=== PATIENT | female | born 1995 | race Caucasian/White ===

== ENCOUNTER 2020-04-20 14:08 | Outpatient (REF) | payer OTHER, SELFPAY | END 2020-04-20 14:09 | disposition home or self-care (01) | LOC: HO.LNP 14:08 | PROVIDERS: Visit Provider Hospitalist | DX: Z20.828 Contact with and (suspected) exposure to other viral communicable diseases (principal); B34.9 Viral infection, unspecified | CPT/HCPCS: U0003 ==

== ENCOUNTER 2020-12-18 07:42 | Outpatient (REF) | payer OTHER, SELFPAY ==
--- NOTE | ~2020-12-18 | XR_ITS ---
EXAMINATION: XR KNEE, LEFT CLINICAL INFORMATION: Pain COMPARISON: None TECHNIQUE: Standing AP view of both knees and lateral and sunrise of the left knee. FINDINGS: Left knee: Bone alignment is normal. No fracture or dislocation is seen. Joint spaces are normal. There is no joint effusion. Standing AP view of the right knee is unremarkable. XR/XR knee LT 3V IMPRESSION: Unremarkable exam.
== END 2020-12-18 07:43 | disposition home or self-care (01) ==
LOC: HO.HOSX 07:42
PROVIDERS: Visit Provider Physician Assistant
DX: S83.92XA Sprain of unspecified site of left knee, initial encounter (principal); M25.561 Pain in right knee; F17.210 Nicotine dependence, cigarettes, uncomplicated; X58.XXXA Exposure to other specified factors, initial encounter; Y93.67 Activity, basketball; Y92.9 Unspecified place or not applicable; Y99.9 Unspecified external cause status
CPT/HCPCS: 73562; 99202

== ENCOUNTER → 2021-01-15 12:45 | Outpatient (BNVA) | payer OTHER, SELFPAY | PROVIDERS: Visit Provider Physician Assistant ==

== ENCOUNTER 2021-11-23 12:46 | Emergency (ER) | payer OTHER, SELFPAY ==
--- NOTE | ~2021-11-23 | XR_ITS ---
EXAMINATION: XR KNEE, LEFT CLINICAL INFORMATION: Pain in knee COMPARISON: Left knee radiograph 12/19/2019 TECHNIQUE: Four views of the left knee. FINDINGS: Small knee effusion. The left knee demonstrates normal alignment without fracture, dislocation or acute osseous abnormalities. XR/XR knee LT 4V IMPRESSION: Small left knee joint effusion. No acute osseous abnormalities demonstrated.
[2021-11-23 12:49] VITALS: BP 124/84; PULSE 83; RESP 18; TEMP 36.6; O2SAT 99; BMI 19.3
--- NOTE | 2021-11-23 14:00 | ED_ITS ---
HPI - Extremity Injury (Lower) General Chief Complaint: Extremity Injury, Lower Stated Complaint: left knee INJ Time Seen by Provider: 11/23/21 14:00 History of Present Illness HPI Narrative: Patient complains of left knee pain after twisting it in basketball 2 days ago, no other injury and she is able to walk with a with a limp Related Data Home Medications Medication Instructions Recorded Confirmed betamethasone valerate 0.1 % topical BID 04/20/20 04/20/20 topical ointment cetirizine 10 mg tablet 10 mg PO DAILY 04/20/20 04/20/20 diphenhydramine HCl 25 mg capsule 25 mg PO BEDTIME PRN 04/20/20 04/20/20 Previous Rx's Medication Instructions Recorded ondansetron HCl 8 mg tablet 8 mg PO Q8H PRN nausea and 04/20/20 vomiting #20 tabs norgestimate-ethinyl estradiol 1 tab PO DAILY #84 tabs 06/29/20 0.18 mg/0.215mg/0.25mg-35 mcg(28)tablet Allergies Allergy/AdvReac Type Severity Reaction Status Date / Time No Known Allergies Allergy Verified 12/18/20 09:35 Review of Systems Review of Systems: Positive for left knee pain after injury Negatives are no head injury no headache no neck pain no back pain no numbness weakness or tingling no other extremity pains no lacerations Yes all other systems are reviewed and are negative PMFSH Past Medical History Source: nursing notes reviewed Medical History Genital herpes Social History Social History (Updated 12/02/21 @ 11:27 by Dee Paige Markus) Alcohol intake: current Alcohol intake frequency: a few times a month Patient Tobacco Use Status: Current everyday Tobacco user Cigarettes Per Day: 4 Current occupational status: employed Current occupation: [employer], rt handed Physical Exam Vital Signs: Vital Signs: Last Vital Signs Temp 98 F 11/23/21 12:49 Pulse 83 11/23/21 12:49 Resp 18 11/23/21 12:49 BP 124/84 11/23/21 12:49 Pulse Ox 99 11/23/21 12:49 O2 Del Method 11/23/21 12:49 BMI result Body Mass Index 19.3 General appearance comfortable no acute distress Head is normocephalic atraumatic Neck is supple Back full range of motion Respiratory no distress Extremities the right knee had some medial and lateral tenderness, there was very mild swelling, there was some limited on flexion but full extension patient ambulating but with a limp, motor and sensation were intact distal and skin was intact Skin no rashes Neuro no focal deficits Course Course Course Narrative: X-ray showed a small effusion, no bony injury of the left knee Exam is consistent with possibly a partial tear of the ligament or meniscus injury, and patient will follow with orthopedics for further evaluation Discharge Plan Discharge Clinical Impression: Left knee sprain Patient Disposition: Home, Self-Care Additional Instructions: X-ray showed a small amount of fluid in the knee which can happen with the knee sprain, or a cartilage injury or partial tear of the ligament so follow with orthopedics for further evaluation Return any time any concerns Use Motrin if needed, apply ice Prescriptions: No Action norgestimate-ethinyl estradiol 0.18/0.215/0.25 mg-35 mcg (28) tablet 1 tab PO DAILY Qty: 84 8RF betamethasone valerate 0.1 % ointment topical BID diphenhydramine HCl 25 mg capsule 25 mg PO BEDTIME PRN cetirizine 10 mg tablet 10 mg PO DAILY ondansetron HCl 8 mg tablet 8 mg PO Q8H PRN (Reason: nausea and vomiting) Qty: 20 0RF Referrals: Paras Pineda MD [Physician] - (Left knee sprain from sports) Stand Alone Forms: Work/School Release Interventions: ED Discharge Assessment Last Done: 11/23/21 14:16 Discharge Date/Time: 11/23/21 14:21
== END 2021-11-23 14:21 | disposition home or self-care (01) ==
PROVIDERS: Emergency Provider Student in an Organized Health Care Education/Training Program
DX: S83.92XA Sprain of unspecified site of left knee, initial encounter (principal); X50.1XXA Overexertion from prolonged static or awkward postures, initial encounter; Y93.67 Activity, basketball; Y92.310 Basketball court as the place of occurrence of the external cause; Y99.9 Unspecified external cause status; Z79.899 Other long term (current) drug therapy
CPT/HCPCS: 73564; 99283

== ENCOUNTER 2021-12-02 11:13 | Outpatient (REF) | payer OTHER, SELFPAY ==
--- NOTE | ~2021-12-02 | XR_ITS ---
EXAMINATION: XR KNEE, LEFT CLINICAL INFORMATION: Pain COMPARISON: Radiographs left knee 11/23/2021, 12/18/2020 TECHNIQUE: Single axial view of the patellar is obtained. FINDINGS: Normal bony mineralization. Patella is midline and without lateralization or tilting. No joint narrowing or erosive change or chondrocalcinosis. No osteophytic spurring. XR/XR knee LT 1V IMPRESSION: Normal axial patella. No lateralization, tilting, or arthropathy.
== END 2021-12-02 11:14 | disposition home or self-care (01) ==
LOC: HO.HOSX 11:13
PROVIDERS: Visit Provider Physician Assistant
DX: M25.562 Pain in left knee (principal)
CPT/HCPCS: 73560

== ENCOUNTER 2022-01-09 14:00 | Outpatient (RCR) | payer OTHER, SELFPAY ==
--- NOTE | 2021-12-10 08:54 | MHC.PT.EP ---
[facility] [place] Office [place] Office [place] Office [address] [place] [address] [phone] F: [phone] F: [phone] F: [phone] F: [phone] Physical Therapy Plan of Care Date of Evaluation: Date of Surgery: n/a Diagnosis: L knee sprain Assessment: Patient is a 26 year old female presenting to PT with complaints of pain in her L knee. Pt reports onset of pain began about 1 month ago due to a contact injury when playing basketball. She presents today with impairments in pain, knee strength, hip strength, ttp, swelling. Pt's current occupation is at [employer], with baseline physical activities including. 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 Clinical presentation today is most consistent with signs and sx associated with L knee sprain and pt will benefit from skilled PT to address the following problems and impairments noted upon evaluation: pain, knee strength, hip strength, ttp, swelling. These problems limit the patient with the following functional activities: running, ambulation, work, basketball, transfers. The prescribed treatment plan of care is medically necessary. Co-morbidities of none were identified and taken into considerations of plan of care. Pt was educated on HEP, role of PT, prognosis, POC. Frequency and Duration: The patient will be seen 2 x week x 4 weeks Short Term Goals: Pt will demonstrate full ROM on L without pain in 2 weeks. Pt will demonstrate 5/5 knee MMT strength on L with min to no pain in 2 weeks. Pt will demonstrate hip strength at least 4+/5 in 2 weeks for improved lumbopelvic stability. Grain Manager Goals: Pt will demonstrate improved LEFI score by 9 points in 4 weeks for improved functional mobility. Pt will demonstrate ability to work a full shift with min to no pain in 4 weeks for improved role at work. Pt will demonstrate ability to run with min to no pain in 4 weeks for return to PLOF with leisure basketball. Pt will demonstrate ability to transfer in and out of the car with no pain in 4 weeks for return to PLOF. Treatment Plan: Modalities to reduce pain, spasms and effusion. Manual therapy to restore motion and function. Therapeutic exercise to improve strength and flexibility. Neuromuscular re-education for posture and balance. Therapeutic activities to return to functional activities of daily living. Electronically signed by: Eleni Ojeda, PT, DPT, ATC Please sign and return to therapist. Thank you for your referral.
--- NOTE | 2022-02-11 08:32 | MHC.PT.DC ---
[facility] [place] Office [place] Office [place] Office [address] [place] [address] [phone] F: [phone] F: [phone] F: [phone] F: [phone] Physical Therapy Discharge Report Diagnosis: L knee sprain Date of Surgery: n/a Date of Evaluation: 12/10/21 Date of Discharge: 02/11/22 Treatments to Date: 5 Cancellations to Date: 0 No Shows to Date: 0 Discharge Status: Recommend MD Follow-up Discharge Summary: PT was put on hold pending MRI and due to limited visits allowed by insurance company. Pt has not reached out in >30 days to be scheduled and therefore pt to be d/c per policy. Electronically signed by: Eleni Ojeda, PT, DPT, ATC Please sign and return to therapist. Thank you for your referral.
== END 2022-02-11 08:34 | disposition home or self-care (01) ==
LOC: HO.PTCHIC 14:00
PROVIDERS: Visit Provider Physician Assistant
DX: S83.92XA Sprain of unspecified site of left knee, initial encounter (principal)
CPT/HCPCS: 97110; 97140; 97161

== ENCOUNTER 2022-02-05 19:20 | Outpatient (REF) | payer OTHER, SELFPAY ==
--- NOTE | ~2022-02-05 | MR_ITS ---
EXAMINATION: MR KNEE WITHOUT CONTRAST, LEFT CLINICAL INFORMATION: Injury, medial swelling. COMPARISON: X-ray 12/02/2021 TECHNIQUE: MRI of the knee without contrast was performed using routine sequences on a high-field scanner. FINDINGS: MENISCI: Medial Meniscus: Increased signal raising concern for a vertical longitudinally propagating tear in the peripheral aspect of the posterior horn/meniscocapsular interface. Lateral Meniscus: There is fraying/ill-defined tear of the posterior root, with increased signal, irregularity. LIGAMENTS: Cruciate: Increased signal, laxity and irregularity of the ACL having the appearance of partial-thickness tearing. PCL is intact. Collateral: Intact EXTENSOR MECHANISM: Intact ARTICULAR CARTILAGE/BONE: Patellofemoral Compartment: No focal cartilage loss Medial Compartment: No focal cartilage loss Lateral Compartment: Mild increased signal suggestive of edema likely bone bruise in the lateral femoral condyle and the lateral tibial plateau. JOINT FLUID AND BURSAE: Small effusion. MR/MR knee LT wo con IMPRESSION: 1. Findings suspicious for a vertical tear in the peripheral aspect of the posterior horn/meniscocapsular interface of the medial meniscus. 2. Ill-defined fraying/tear of the posterior root of the lateral meniscus. 3. Anterior cruciate ligament partial-thickness tearing. 4. Bone contusion in the lateral femoral condyle and lateral tibial plateau.. 5. Small effusion.
== END 2022-02-05 19:21 | disposition home or self-care (01) ==
LOC: HO.MRI 19:20
PROVIDERS: Visit Provider Physician Assistant
DX: S83.92XA Sprain of unspecified site of left knee, initial encounter (principal)
CPT/HCPCS: 73721

== ENCOUNTER 2022-03-05 09:13 | Day surgery (SDC) | payer OTHER, SELFPAY ==
[2022-02-28 10:56] VITALS: BMI 19.3
--- NOTE | 2022-03-04 08:37 | HO.ANESPROP2 ---
Documented by User: Bozena Rodriguez NP 03/04/22 08:37 HPI - Anesthesia Eval Consult details Narrative: 26yo F for Left ACL Allograft partial menisectomy PMFSH Active Problems Active Problems: All Active Problems (Updated 02/13/22 @ 10:56 by Yumiko Lopes) Viral syndrome (Acute) Knee pain (Acute) Knee sprain (Acute) Left knee sprain (Acute) Left ACL tear (Acute) Tear of medial meniscus of left knee (Acute) Genital herpes (Acute) Past Medical History Medical History (Updated 02/13/22 @ 10:56 by Yumiko Lopes) Genital herpes Surgical History Surgical History (Updated 03/05/22 @ 10:16 by Genia Herndon RN) Menno teeth removed Social History Social History Alcohol intake: current Alcohol intake frequency: a few times a month Patient Tobacco Use Status: Current everyday Tobacco user Tobacco use type: Cigarette Cigarettes Per Day: 4 Current occupational status: employed Current occupation: [employer] Allergies Allergy/AdvReac Type Severity Reaction Status Date / Time No Known Allergies Allergy Verified 02/13/22 08:51 Home Medications Medication Instructions Recorded Confirmed Last Taken Type betamethasone valerate 0.1 % topical BID 04/20/20 04/20/20 Unknown History topical ointment cetirizine 10 mg tablet 10 mg PO DAILY 04/20/20 04/20/20 Unknown History diphenhydramine HCl 25 mg capsule 25 mg PO BEDTIME PRN 04/20/20 04/20/20 Unknown History Exam Exam Date and Time: March 04, 2022 0837 Height,Weight and Vital Signs: Height 5 ft 6 in Weight 54.431 kg Assessment and Plan Assessment Anesthesia Assessment: Chart Reviewed Documented by User: Bacilio Solis MD 03/05/22 18:02 HPI - Anesthesia Eval Consult details Narrative: 26yo F for Left ACL Allograft partial menisectomy URI a week ago , no fever , SOB , lungs clear , some residual congestion. COVID negative Discussed with the surgeon . [facility] Past Medical History Medical History (Updated 02/13/22 @ 10:56 by Yumiko Lopes) Genital herpes Family History Family history of problems with anesthesia: No Surgical History Surgical History (Updated 03/05/22 @ 10:16 by Genia Herndon RN) Menno teeth removed History of Problems with Anesthesia: No Social History Social History Alcohol intake: current Alcohol intake frequency: a few times a month Patient Tobacco Use Status: Current everyday Tobacco user Tobacco use type: Cigarette Cigarettes Per Day: 4 Current occupational status: employed Current occupation: [employer], rt [employer] Allergies Allergy/AdvReac Type Severity Reaction Status Date / Time No Known Allergies Allergy Verified 02/13/22 08:51 Home Medications Medication Instructions Recorded Confirmed Last Taken Type betamethasone valerate 0.1 % topical BID 04/20/20 04/20/20 Unknown History topical ointment cetirizine 10 mg tablet 10 mg PO DAILY 04/20/20 04/20/20 Unknown History diphenhydramine HCl 25 mg capsule 25 mg PO BEDTIME PRN 04/20/20 04/20/20 Unknown History Exam Airway Mallampati Class: II TM Dist: >3cm Neck ROM: Full Loose/Missing/Broken Teeth: Yes (Fillings ) Heart: S1,S2 Lungs: b/l breath sounds Assessment and Plan Assessment Anesthesia Assessment: Anesthesia Plan Discussed Final Anesthetic Review Family History of Problems with Anesthesia: No History of Problems with Anesthesia: No NPO: Yes ASA Class: II Final Preanesthetic Review: Meds/Allgs Chart Reviewed, Consent Obtained/Reviewed and Anes Risks/Benef Reviewed Patient Risk: Intermediate Procedure Risk: Intermediate Anesthetic Plan Anesthetic Plan: GA and Regional Block Disposition: Standard PACU
[2022-03-05] VITALS (13 sets, daily range): BP systolic 105–141; BP diastolic 60–76; PULSE 64–116; RESP 16; TEMP 36.3–37.2; O2SAT 97–100; BMI 21.7
[2022-03-05 09:37] LABS: UPreg QC Valid YES; Urine Pregnancy NEGATIVE (NEGATIVE)
--- NOTE | 2022-03-05 09:49 | PC.NURSE ---
patient has a cough and runny nose for six dys. asymptomatic. no fever. covid swab performed.
[2022-03-05 10:17] LABS: COVID-19 Test Negative (Negative); IDNOW Serial# 9DB6401D
--- NOTE | 2022-03-05 10:27 | PC.NURSE ---
covid negative. patient states productive clear sputum with small brown spots. states he cough is gettig better since 5-6 days ago. no fever.
[2022-03-05] MEDS: Lactated Ringers 1,000 ML 100 ML IVCONT (10:28)
--- NOTE | 2022-03-05 11:27 | MHC.SHP ---
Pre-Procedural Eval Section A Date of Service: 03/05/22 The patient is an INPATIENT: No Changes since office visit: Yes Patient answered all questions; No Cold of Flu in the past 2 weeks, No New Medical Problems and No Changes in Medication The History & Physical has been completed within 30 days and I have reviewed it.: Yes Section B Chief Complaint: acl tear Allergies: Allergies Allergy/AdvReac Type Severity Reaction Status Date / Time No Known Allergies Allergy Verified 02/13/22 08:51 Plan I have reviewed the history and physical and performed a pertinent physical examination on my patient. No changes have occurred unless specified.
--- NOTE | 2022-03-05 14:03 | P.BOP_ITS ---
Brief Operative Note Date of Service: 03/05/22 Pre-op diagnosis: Left ACL rupture Post-op diagnosis: same Procedure: Left ACL reconsturction with allograft and hamstring autograft Implants: 10x25 [employer]hew biocomposit tibial interference screw with lateral ACL button and RTI Allograft Surgeon: Paras Pineda MD Anesthesia: GETA, regional and local Was an Assistant Portfolio Manager used for this Procedure?: No Assistant Portfolio Manager: Shakila Vasquez Estimated blood loss (mL): 25 Tourniquet time (min): 75 IV fluids (mL): 1,000 Pathology: none sent Condition: stable Disposition: PACU
[2022-03-05] MEDS: oxyCODONE HCl Immed Release 5 MG TABLET PO (14:45)
[2022-03-05] MEDS: fentaNYL citrate/PF 100 MCG/2 ML VIAL 25 MCG IVPUSH ×2 (14:46→14:51)
--- NOTE | 2022-03-05 15:29 | W.PM.OPN ---
Operative Note Operative Note Date of Service: 03/05/22 Narrative: Date of Service: 03/05/22 Pre-op diagnosis: Left ACL rupture Post-op diagnosis: same Procedure: Left ACL reconsturction with allograft and hamstring autograft Implants: 10x25 [employer]hew biocomposit tibial interference screw with lateral ACL button and RTI Allograft Surgeon: Paras Pineda MD Anesthesia: GETA, regional and local Was an Deli Department Manager used for this Procedure?: No Deli Department Manager: Shakila Vasquez Estimated blood loss (mL): 25 Tourniquet time (min): 75 IV fluids (mL): 1,000 Pathology: none sent Condition: stable Disposition: PACU Procedure in detail: Patient was brought to the operating room placed supine on the arthroscopic table and prepped and draped in standard sterile fashion. A time-out was called to identify proper site proper procedure proper surgeon and IV antibiotics per weight were administered. Under anesthesia she had a + pivot shift and 2+ arabelal's. I began by exsanguinating the limb and insufflating tourniquet to 300 mm Hg. I made a 2 cm incision over the pes anserine tendons. I spread through subq fat and identified the sartorius fasia. A ramon incision was made and the underlying smitendinosis and gracilis were identified. I then used a tendon stripped to remove each tendon in standard fashion. Neither were large caliber so the decision was made to augment with allograft. THis was opened and the graft thawed and prepared on the back table. I then made a standard anterolateral stab incision. The knee was insufflated with water and 30 degree arthroscope was placed. There was grade 1 fibrillations of the patella but overall suprapatellar pouch and the gutters were clean. I descended into the medial compartment where I made my far medial portal under direct visualization. There was a normal medial meniscus and lateral meniscus. I then examined the notch where there was a + empty wall sign and an intact PCL. I debrided the stump and acl footprint and performed a limited notchplasty. I then, through a far AM portal and a 7mm behind the back guide, drilled a k-wire through the LFC with the knee in hyper-flexion. I measured the tunnel as a 35 and then after sizing the allograft on the back table drilled a 35 mm tunnel with an 10 mm reamer for 27 mm and the final 8 mm was drilled with a 4.5 reamer. I then pulled a suture through the femoral tunnel and turned my attention to the tibia. I did examine the femoral tunnel and was satisfied with the posterior wall and its location low and medial at the anatomic footprint. I placed my tibial drill guide in 55 deg and, through the prior anteromedial incision, just lateral to the tibial tubercle, placed a k-wire into the notch exiting just medial to the anterior horn insertion of the lateral meniscus. I then over-reamed with an 10 reamer. I cleaned the tunnels up with a shaver. On the back table the allograft/autograft was doubled and whip stitched to fit through a 10 aperture. The femoral button was attached to the looped end. I placed the graft on 15lbs of tension for 10 minutes. I then passed the allograft through the tibial tunnel and femoral tunnel and flipped the button over the lateral femoral cortex. I cycled the knee about 10-15 cycles with tension on the graft and then placed a tibial interference screw over a nitinol wire with the knee in hyper-extension while holding the graft taught. Once I was satisfied that the interference screw was buried I examined the ACL and the medial meniscus repair. The repair was stable and the ACL was not impinging and there was a negative pivot shift. I then removed all instrumentation and closed the incisions with absorbable suture Patient was then placed in sterile dressings and a hinged knee brace. She was then extubated brought recovery room stable condition. There were no known complications.
== END 2022-03-05 16:55 | disposition home or self-care (01) ==
PROVIDERS: Anesthesiology; Nurse Practitioner; Visit Provider Orthopaedic Surgery
PROC: (CPT 27428; principal; 2022-03-05 11:30)
DX: S83.512A Sprain of anterior cruciate ligament of left knee, initial encounter (principal); S83.242A Other tear of medial meniscus, current injury, left knee, initial encounter; X58.XXXA Exposure to other specified factors, initial encounter; Y93.9 Activity, unspecified; Y92.9 Unspecified place or not applicable; Y99.8 Other external cause status; A60.00 Herpesviral infection of urogenital system, unspecified; Z79.899 Other long term (current) drug therapy; F17.210 Nicotine dependence, cigarettes, uncomplicated; Z20.822 Contact with and (suspected) exposure to COVID-19
CPT/HCPCS: 29888; 81025; 87635; A4649; C1713; J0690; J1100; J1170; J1200; J1885; J2250; J2405; J2550; J2795; J3010

== ENCOUNTER 2022-03-13 12:03 | Outpatient (REF) | payer OTHER, SELFPAY ==
--- NOTE | ~2022-03-13 | XR_ITS ---
EXAMINATION: XR KNEE, LEFT CLINICAL INFORMATION: Left knee pain. COMPARISON: None. TECHNIQUE: Four views of the left knee. FINDINGS: There are postsurgical changes following ACL repair. The tricompartment joint space is maintained normal. There is postop changes in the suprapatellar bursa combination of air and hematoma likely from recent surgery. No acute fracture or loose body seen. There is no dislocation.. XR/XR knee LT 2V IMPRESSION: Soft tissue hematoma and gas in several bursa likely from recent ACL repair. No acute fracture or loose body seen.
== END 2022-03-13 12:04 | disposition home or self-care (01) ==
LOC: HO.HOSX 12:03
PROVIDERS: Visit Provider Physician Assistant
DX: M25.562 Pain in left knee (principal)
CPT/HCPCS: 73560

== ENCOUNTER 2022-06-25 13:00 | Outpatient (RCR) | payer OTHER, SELFPAY ==
--- NOTE | 2022-03-07 16:06 | MHC.PT.EP ---
[facility] [place] Office [place] Office [place] Office [address] [place] [address] [phone] F: [phone] F: [phone] F: [phone] F: [phone] Physical Therapy Plan of Care Date of Evaluation: Date of Surgery: 03/05/2022 Diagnosis: L ACL repair Assessment: Patient is a 26 year old female presenting to PT s/p L ACL and meniscus repair on 03/05/2022. She presents today with impairments in pain, ROM, hip strength, knee strength, gait mechanics, balance. Pt's current occupation is at [employer], with baseline physical activities including ambulation, stair negotiation, work, ADLs, running, jumping. Pt expresses shelter goal of getting back to [facility] [employer], and is motivated to work towards this in PT. Clinical presentation today is most consistent with signs and sx associated with s/p L ACL and meniscus repair on 03/05/2022 and pt will benefit from skilled PT to address the following problems and impairments noted upon evaluation: pain, ROM, hip strength, knee strength, gait mechanics, balance. These problems limit the patient with the following functional activities: ambulation, stair negotiation, work, ADLs, running, jumping. The prescribed treatment plan of care is medically necessary. Co-morbidities of none were identified and taken into considerations of plan of care. Pt was educated on HEP, role of PT, prognosis, POC. Frequency and Duration: The patient will be seen 2 x week x 12 weeks Short Term Goals: Pt will demonstrate good VMO recruitment without extension lag in 4 weeks. Pt will demonstrate L knee flexion AROM to 90 deg in 4 weeks. Pt will demonstrate L knee extension AROM to 0 for symmetry with R knee in 4 weeks. Pt will demonstrate increased L patella mobility to 3/6 in 4 weeks. Pt will demonstrate gait mechanics WNL in brace for decreased risk in 6 weeks. Pt will demonstrate B hip strength at least 4/5 for improved lumbopelvic stability in 6 weeks. Pt will demonstrate L knee passive flexion to 120 deg for improved ability to maintain sitting in 6 weeks. Pt will demonstrate L knee MMT strength at least 4/5 in 6 weeks. Penitentiary Goals: Pt will demonstrate increased L knee flexion to 135 deg for ability to perform full bicycle revolution in 8 weeks. Pt will demonstrate ability to ambulate with normal gait mechanics without brace in 8 weeks. Pt will demonstrate L SLS EO x 15 sec and L SLS EO on foam x 15 sec for improved L knee proprioception in 10 weeks. Pt will demonstrate B hip strength at least 4+/5 in 10 weeks for improved lumbopelvic stability. Pt will demonstrate knee strength at least 5/5 in 10 weeks. Pt will demonstrate L SL squat within 4 cm of RLE for decreased risk of reinjury in 12 weeks. Pt will demonstrate L SL CR within 90% of RLE with good mechanics in 12 weeks. Pt will demonstrate DL squat jump with good mechanics in 12 weeks. Treatment Plan: Modalities to reduce pain, spasms and effusion. Manual therapy to restore motion and function. Therapeutic exercise to improve strength and flexibility. Neuromuscular re-education for posture and balance. Therapeutic activities to return to functional activities of daily living. Electronically signed by: Eleni Ojeda, PT, DPT, ATC Please sign and return to therapist. Thank you for your referral.
--- NOTE | 2022-08-15 08:23 | MHC.PT.DC ---
[facility] [place] Office [place] Office [place] Office [address] Skyler Hatfield [address] [phone] F: [phone] F: [phone] F: [phone] F: [phone] Physical Therapy Discharge Report Diagnosis: L ACL repair Date of Surgery: 03/05/2022 Date of Evaluation: 03/07/22 Date of Discharge: 08/15/22 Treatments to Date: 16 Cancellations to Date: 0 No Shows to Date: 1 Discharge Status: Visit Non-compliance Discharge Summary: Pt no showed her last scheduled PT appointment and did not call to be rescheduled. She has not attended PT in >30 days. Pt to be d/c per policy. Electronically signed by: Eleni Ojeda, PT, DPT, ATC Please sign and return to therapist. Thank you for your referral.
== END 2022-08-15 08:24 | disposition home or self-care (01) ==
LOC: HO.PTCHIC 13:00
PROVIDERS: Visit Provider Physician Assistant
DX: S83.512A Sprain of anterior cruciate ligament of left knee, initial encounter (principal)
CPT/HCPCS: 97110; 97112; 97140; 97161; 97530

== ENCOUNTER 2022-06-30 12:22 | Outpatient (REF) | payer OTHER, SELFPAY ==
--- NOTE | ~2022-06-30 | XR_ITS ---
EXAMINATION: XR KNEE, BILATERAL XR KNEE, LEFT CLINICAL INFORMATION: Pain COMPARISON: 03/13/2022 TECHNIQUE: AP standing view of both knees. Lateral and sunrise views of the left knee. FINDINGS: Left knee: Status post ACL reconstruction. This is unchanged from prior. No fracture or subluxation. Compartmental joint spaces are maintained. No joint effusion. Mild anterior soft tissue swelling. Right knee: No fracture or subluxation on this single view with medial and lateral compartmental joint spaces maintained. XR/XR knee LT 2V IMPRESSION: Status post left ACL reconstruction. No acute osseous abnormality. Mild anterior soft tissue swelling.
--- NOTE | ~2022-06-30 | XR_ITS ---
EXAMINATION: XR KNEE, BILATERAL XR KNEE, LEFT CLINICAL INFORMATION: Pain COMPARISON: 03/13/2022 TECHNIQUE: AP standing view of both knees. Lateral and sunrise views of the left knee. FINDINGS: Left knee: Status post ACL reconstruction. This is unchanged from prior. No fracture or subluxation. Compartmental joint spaces are maintained. No joint effusion. Mild anterior soft tissue swelling. Right knee: No fracture or subluxation on this single view with medial and lateral compartmental joint spaces maintained. XR/XR knee standing BI IMPRESSION: Status post left ACL reconstruction. No acute osseous abnormality. Mild anterior soft tissue swelling.
== END 2022-06-30 12:23 | disposition home or self-care (01) ==
LOC: HO.HOSX 12:22
PROVIDERS: Visit Provider Orthopaedic Surgery
DX: S83.512A Sprain of anterior cruciate ligament of left knee, initial encounter (principal); S83.242A Other tear of medial meniscus, current injury, left knee, initial encounter
CPT/HCPCS: 73560; 73565

== ENCOUNTER → 2022-09-29 13:07 | Outpatient (BNVA) | payer OTHER, SELFPAY | PROVIDERS: Visit Provider Orthopaedic Surgery | DX: Z13.89 Encounter for screening for other disorder (principal) ==

== ENCOUNTER 2022-12-26 09:39 | Outpatient (REF) | payer OTHER, SELFPAY ==
--- NOTE | ~2022-12-26 | XR_ITS ---
X-RAY LEFT KNEE X-RAY AP STANDING VIEWS OF BOTH KNEES CLINICAL HISTORY: Pain. COMPARISON: Radiograph left knee 06/30/2022. TECHNIQUE: 2 views of the left knee. 1 AP standing view of both knees. FINDINGS: Stable postoperative changes in the left knee following ACL reconstruction. No acute fractures or malalignment. Mild joint space narrowing of the medial compartments in both knees. No erosions or chondrocalcinosis. No joint effusion. Redemonstration of some degree of indeterminate anterior soft tissue swelling. XR/XR knee LT 2V IMPRESSION: 1. Stable postoperative changes in the left knee. 2. No acute fractures or malalignment. 3. Mild joint space narrowing in the medial compartments of both knees.
--- NOTE | ~2022-12-26 | XR_ITS ---
X-RAY LEFT KNEE X-RAY AP STANDING VIEWS OF BOTH KNEES CLINICAL HISTORY: Pain. COMPARISON: Radiograph left knee 06/30/2022. TECHNIQUE: 2 views of the left knee. 1 AP standing view of both knees. FINDINGS: Stable postoperative changes in the left knee following ACL reconstruction. No acute fractures or malalignment. Mild joint space narrowing of the medial compartments in both knees. No erosions or chondrocalcinosis. No joint effusion. Redemonstration of some degree of indeterminate anterior soft tissue swelling. XR/XR knee standing BI IMPRESSION: 1. Stable postoperative changes in the left knee. 2. No acute fractures or malalignment. 3. Mild joint space narrowing in the medial compartments of both knees.
== END 2022-12-26 09:40 | disposition home or self-care (01) ==
LOC: HO.HOSX 09:39
PROVIDERS: Visit Provider Orthopaedic Surgery
DX: S83.512D Sprain of anterior cruciate ligament of left knee, subsequent encounter (principal); S76.311D Strain of muscle, fascia and tendon of the posterior muscle group at thigh level, right thigh, subsequent encounter; X58.XXXD Exposure to other specified factors, subsequent encounter
CPT/HCPCS: 73560; 73565

== ENCOUNTER 2022-12-26 12:25 | Outpatient (AMB) | payer OTHER, SELFPAY ==
--- NOTE | 2022-12-26 12:32 | MHC.OFFVIS ---
Intake Intake Visit Reasons: N/Prob- RT knee pain/ s/p left ACL repair 03/05/22 Intake Note: Barbara is a 27 year old female who presents today for a new problem with complaints of right knee pain. Hx of left ACL repair 03/05/22. Patient reports that she has been having pain in the right knee for about 2 months now. Denies injury. Her pain is felt on the posterior aspect of the knee as well as the anterior surface, she also mentions that her hamsting if feeling rather tight. Increased pain at the end of the day or sometimes in the morning after working. Denies numbness and tingling. Allergies No Known Allergies Allergy (Verified 06/30/22 13:35) HPI N/Prob- RT knee pain/ s/p left ACL repair 03/05/22 HPI Details Patient is doing well status post left ACL repair but over the past several weeks has had some posterior right hamstring tightness. She comes in today wondering if there is anything she should do for this. She states her left knee is feeling well. She is working with physical therapy and is active every day with strengthening, treadmill, stationary bicycle. [facility] Medical History Genital herpes Surgical History [place] teeth removed Social History Alcohol intake: current Alcohol intake frequency: a few times a month Patient Tobacco Use Status: Current everyday Tobacco user Tobacco use type: Cigarette Cigarettes Per Day: 4 Current occupational status: employed Current occupation: [employer], rt handed Physical Exam Extrem Other: Left knee stable to Sophia's testing with no effusion well-healed portals. Right knee with full range of motion. There is tenderness over the hamstring body of the right distal hamstring. She can reproduce her pain with passive stretching of the hamstring. Results Reviewed Results Reviewed: I personally reviewed relevant radiographs. stable appearance of ACL hardware. No acute changes. No hardware complications. Assessment & Plan Assessment & Plan (1) Left ACL tear: Code(s): S83.512A - Sprain of anterior cruciate ligament of left knee, initial encounter Plan: left ACL doing well. Continue strengthening exercises. If her contralateral hamstring is bothering her may consider stationary biking, stretching. (2) Right hamstring muscle strain: Code(s): S76.311A - Strain of muscle, fascia and tendon of the posterior muscle group at thigh level, right thigh, initial encounter Plan: Reviewed my clinical findings and I recommend that she stretcher hamstring and she focus more in stationary biking than on treadmill given her current complaints. If this persists shoulder could today ray we will consider formal physical therapy. Orders: Orders XR knee LT 2V Today M25.569 - Pain in unspecified knee XR knee standing BI Today M25.569 - Pain in unspecified knee Coding Level of Care Code Est Pt Level 4 (09019) Diagnoses Left ACL tear S83.512A Right hamstring muscle strain S76.311A
== END 2022-12-26 12:56 | disposition home or self-care (01) ==
PROVIDERS: Visit Provider Orthopaedic Surgery
DX: M25.562 Pain in left knee (principal); S83.512A Sprain of anterior cruciate ligament of left knee, initial encounter; S76.311A Strain of muscle, fascia and tendon of the posterior muscle group at thigh level, right thigh, initial encounter
CPT/HCPCS: 99213

== ENCOUNTER 2023-01-14 14:00 | Outpatient (RCR) | payer OTHER, SELFPAY ==
--- NOTE | 2022-10-01 11:01 | MHC.PT.EP ---
[facility] [place] Office [place] Office [place] Office [address] Skyler Hatfield [address] [phone] F: [phone] F: [phone] F: [phone] F: [phone] Physical Therapy Plan of Care Date of Evaluation: Date of Surgery: 03/05/2022 Diagnosis: L ACL tear Assessment: Patient is a 27 year old female presenting to PT s/p ACL reconstruction 03/05/2022. She presents today with impairments in functional strength and mobility. 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 Pt expresses longterm goal of returning to PLOF, and is motivated to work towards this in PT. Clinical presentation today is most consistent with signs and sx associated with s/p L ACL reconstruction 03/05/2022 and pt will benefit from skilled PT 1 week x 4 weeks followed by every other week to address the following problems and impairments noted upon evaluation: functional strength and mobility. These problems limit the patient with the following functional activities: jumping, running, prolonged ambulation. The prescribed treatment plan of care is medically necessary. Co-morbidities of none were identified and taken into considerations of plan of care. Pt was educated on HEP, role of PT, prognosis, POC. Frequency and Duration: The patient will be seen 1 x week x 4 weeks followed by every other week x 4 additional weeks Short Term Goals: Pt will demonstrate ability to perform SL STS from mat without compensation in 4 weeks. Pt will demonstrate 5/5 knee MMT strength in 4 weeks. Pt will demonstrate improved hip MMT strength by 1/3 grade in 4 weeks. Logistics/Shipper Goals: Pt will demonstrate improved anterior reach to be within 4 cm of R side in 8 weeks for decreased risk of reinjury. Pt will demonstrate SL anterior hop test within 10% of the R in 8 weeks for improved functional strength. Pt will demonstrate triple hop test within 10% of the R in 8 weeks for improved functional strength. Treatment Plan: Modalities to reduce pain, spasms and effusion. Manual therapy to restore motion and function. Therapeutic exercise to improve strength and flexibility. Neuromuscular re-education for posture and balance. Therapeutic activities to return to functional activities of daily living. Electronically signed by: Eleni Ojeda, PT, DPT, ATC Please sign and return to therapist. Thank you for your referral.
--- NOTE | 2023-01-14 14:53 | MHC.PT.DC ---
[facility] [place] Office [place] Office [place] Office [address] Skyler Hatfield [address] [phone] F: [phone] F: [phone] F: [phone] F: [phone] Physical Therapy Discharge Report Diagnosis: L ACL tear Date of Surgery: 03/05/2022 Date of Evaluation: 10/01/22 Date of Discharge: 01/14/23 Treatments to Date: 9 Cancellations to Date: 0 No Shows to Date: 0 Discharge Status: Discharge Summary: 01/14/2023: She returns today with increased pain in her R knee. She even had to go to the ER due to the pain being so bad. I have been treating her L ACL reconstruction and she has made good progress up to this point. We are now limited with how much we can continue to progress her running, agility, and jumping due to new onset of R knee pain. At this point we have decided to d/c her for her L knee as she has a hard max with her insurance and is limited to only 20 visits a year and now we cannot progress her further due to the R knee. She is anticipating a PT referral for her R knee when she sees ortho on 01/22. We reviewed her program for her L knee and she understands how it can be modified to avoid worsening her R knee pain. She is to be d/c today and will see ortho on 01/22 for further guidance. She is in agreement with d/c today. Electronically signed by: Eleni Ojeda, PT, DPT, ATC Please sign and return to therapist. Thank you for your referral.
== END 2023-01-14 14:53 | disposition home or self-care (01) ==
LOC: HO.PTCHIC 14:00
PROVIDERS: Visit Provider Orthopaedic Surgery
DX: S83.512A Sprain of anterior cruciate ligament of left knee, initial encounter (principal)
CPT/HCPCS: 97110; 97161; 97530

== ENCOUNTER 2023-01-22 14:09 | Outpatient (AMB) | payer OTHER, SELFPAY ==
--- NOTE | 2023-01-22 14:18 | MHC.OFFVIS ---
Intake Vital Signs 01/22/23 14:19 Height 5 ft 6 in Intake Visit Reasons: OV - Right Knee Pain Intake Note: Barbara is a 27 year old female who presents today for a follow up of her right knee pain. Patient reports that she was seen at [facility] ED with complaints of right thigh pain. An US was done with no findings Allergies No Known Allergies Allergy (Verified 01/23/23 13:44) HPI OV - Right Knee Pain HPI Details Barbara Forrester is a 27-year-old female who presents today to the office for an evaluation of right knee and leg pain. The patient had a left knee ACL repair on 03/05/22. She states that her pain started about two months ago and kept worsening. Her pain aggravates with standing, walking, and exercises. She was seen in the [facility] ED for right knee pain. She had a US of knee which was unremarkable. [facility] Medical History (Updated 01/30/23 @ 09:10 by Paras Pineda MD) Genital herpes Knee effusion, right Surgical History [place] teeth removed Social History Housing: House Alcohol intake: current Alcohol intake frequency: a few times a month Patient Tobacco Use Status: Current everyday Tobacco user Tobacco use type: Cigarette Cigarettes Per Day: 4 e-Cigarette/Vaping Use: Never Used Second Hand Smoke Exposure: No service: No Current occupational status: employed Current occupation: [employer] rt handed Cognitive needs: No Hearing needs: No Vision needs: No Physical Exam Const General: no acute distress, alert and awake Orientation/consciousness: patient oriented x3 HEENT Head: Yes normocephalic and Yes atraumatic Eyes EOM: EOMs intact bilaterally Resp Effort & Inspection: normal respiratory effort and able to speak in complete sentences Cardio Jugular venous distension: no JVD Skin General skin exam: turgor normal Rashes: no rashes Neuro General: patient oriented x3 Extrem Other: Left knee with stable arabella's and no effusion. Full painless ROM RIght knee with mild effusion and medial compartment TTP with + medial Steinmen's Psych Appearance: grossly normal Affect: normal affect Attitude: cooperative Results Reviewed Results Reviewed: I personally reviewed relevant radiographs. 12/26/22: X-RAY LEFT KNEE. X-RAY AP STANDING VIEWS OF BOTH KNEES FINDINGS: Stable postoperative changes in the left knee following ACL reconstruction. No acute fractures or malalignment. Mild joint space narrowing of the medial compartments in both knees. No erosions or chondrocalcinosis. No joint effusion. Redemonstration of some degree of indeterminate anterior soft tissue swelling. IMPRESSION: 1. Stable postoperative changes in the left knee. 2. No acute fractures or malalignment. 3. Mild joint space narrowing in the medial compartments of both knees. Assessment & Plan Assessment & Plan (1) Knee effusion, right: Code(s): M25.461 - Effusion, right knee Plan: Right knee effusion with pain medially and posteriorly. This has not improved with supervised exercises, NSAIDs and has been present for months. I recommend an MRI to assess given lack of improvement. Plan Scribed for Dr. Paras Pineda by Luis Lindsay, biomedical equipment specialist, on 01/22/2023. I, Dr. Paras Pineda, have personally reviewed and agree with the information entered by the scribe. Coding Level of Care Code Est Pt Level 4 (15700) Diagnoses Knee effusion, right M25.461
== END 2023-01-22 15:26 | disposition home or self-care (01) ==
PROVIDERS: Visit Provider Orthopaedic Surgery
DX: M25.461 Effusion, right knee (principal)
CPT/HCPCS: 99214

== ENCOUNTER → 2023-01-22 14:09 | Outpatient (BNVA) | payer OTHER, SELFPAY | PROVIDERS: Visit Provider Orthopaedic Surgery ==

== ENCOUNTER 2023-01-23 13:39 | Outpatient (AMB) | payer OTHER, SELFPAY ==
[2023-01-23 13:43] VITALS: BP 108/70; PULSE 82; O2SAT 99; BMI 25.1
--- NOTE | 2023-01-23 13:43 | MHC.PC.OV ---
Vital Signs 01/23/23 13:43 Height 5 ft 6 in Weight 155 lb 4 oz BMI 25.1 BP 108/70 Blood Pressure Location Lt brachial Position Sitting Pulse 82 Pulse Source Pulse Oximeter Pulse Oximetry (%) 99 Oxygen Delivery Method Room Air Intake Visit Reasons: Physical Exam Intake Note: Patient is here today for a physical. 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 Accompanied by: Self / Same As Patient Allergies No Known Allergies Allergy (Verified 01/23/23 13:44) Medication List - Last Reconciled 01/23/23 by Yobani Ashraf MD No Known Home Meds Tobacco use date assessed: 01/23/23 Dental Screening Dental Screen Date: 01/23/23 Did you have a dental visit in the last 12 months?: Yes Did you have a dental problem in the last 6 months where you did not have access to dental care?: No Was dental information given to patient?: Patient has dentist HPI Physical Exam HPI Details healthy [facility] Medical History Genital herpes Surgical History [place] teeth removed Social History Housing: House Alcohol intake: current Alcohol intake frequency: a few times a month Patient Tobacco Use Status: Current everyday Tobacco user Tobacco use type: Cigarette Cigarettes Per Day: 4 e-Cigarette/Vaping Use: Never Used service: No Current occupational status: employed Current occupation: [employer], rt handed Cognitive needs: No Hearing needs: No Vision needs: No Questionnaire PHQ-9 Over the last 2 weeks, how often have you been bothered by any of the following problems? 1. Little interest or pleasure in doing things: not at all 2. Feeling down, depressed, or hopeless: not at all 3. Trouble falling or staying asleep, or sleeping too much: not at all 4. Feeling tired or having little energy: not at all 5. Poor appetite or overeating: not at all 6. Feeling bad about yourself - or that you are a failure or have let yourself or your family down: not at all 7. Trouble concentrating on things, such as reading the newspaper or watching television: not at all 8. Moving or speaking so slowly that other people could have noticed. Or the opposite - being so fidgety or restless that you have been moving around a lot more than usual: not at all 9. Thoughts that you would be better off or of hurting yourself in some way: not at all Total score: 0 Depression Screening Interpretation: Negative 29009 - PHQ-9 Billing: Yes Source: Developed by Drs. Perez Gonzalez, Rose Negro, Neil Bermudez and colleagues, with an educational jenelle from [employer]. Thrive Questionnaire Date Thrive assessed: 01/23/23 I am a: Patient What is your living situation today?: I have a steady place to live Within the past 12 months, did the food you bought not last and you didn't have the money to get more?: Never true Within the past 12 months, did you worry whether your food would run out before you got money to buy more?: Never true Do you have trouble paying for medicines?: No Do you have trouble getting transportation to medical appointments?: No Do you have trouble paying your heating and electricity bill?: No Do you have trouble taking care of your child, family member or friend?: No Do you have trouble with day-to-day activities such as bathing, preparing meals, shopping, managing finances, etc.?: No Are you currently unemployed and looking for a job?: No Are you interested in more education?: No Please select the resources that you would like help with: None Currently or been in a relationship where the following occur: no concerns reported AUDIT C Alcohol Use Questionnaire (AUDIT-C) 1. How often do you have a drink containing alcohol?: Monthly or less 2. How many drinks containing alcohol do you have on a typical day when you are drinking?: 1 or 2 3. How often do you have six or more drinks on one occasion?: Never Total Score: 1 Score Reviewed/Action Taken: Yes ABDOULAYE-7 AMB Questionnaire ABDOULAYE-7 Date ABDOULAYE - 7 assessed: 01/23/23 Feeling nervous, anxious, or on edge: 0 = Not at all Not being able to stop or control worryin = Not at all Worrying too much about different things: 0 = Not at all Trouble relaxin = Not at all Being so restless that it is hard to sit still: 0 = Not at all Becoming easily annoyed or irritable: 0 = Not at all Feeling afraid as if something awful might happen: 0 = Not at all Total ABDOULAYE-7 score (0-4 normal; 5-9 mild; 10-14 moderate; 15-21 severe): 0 Source: Developed by Drs. Perez Gonzalez, Rose Negro, Neil Bermudez and colleagues, with an educational jenelle from [employer]. ABDOULAYE-7 Assessment Billing ABDOULAYE-7 Assessment Tool: ABDOULAYE-7 Assessment 59049 Review of Systems Const Denies chills, Denies fatigue, Denies headache(s) and Denies weight loss Eyes Denies change in vision, Denies diplopia and Denies eye pain ENT Denies vertigo, Denies dizziness, Denies headache(s) and Denies nasal discharge Card Denies chest pain, Denies rapid heart rate and Denies dyspnea on exertion Resp Denies chest congestion, Denies cough, Denies pain with cough and Denies dyspnea on exertion GI Denies abdominal pain, Denies hematochezia and Denies change in bowel habits Musc Denies myalgias, Denies arthralgias and Denies joint swelling Skin/Breast Denies lesions and Denies unusual bruising Neuro Denies vertigo, Denies dizziness, Denies headache(s) and Denies focal weakness Endo Denies fatigue Physical exam (Primary Care) Vital Signs: Last Vital Signs Pulse 82 01/23/23 13:43 BP 108/70 01/23/23 13:43 Pulse Ox 99 01/23/23 13:43 Oxygen Delivery Method Room Air 01/23/23 13:43 BMI result Body Mass Index 25.1 Tobacco/Smoking Status: Tobacco use Status Tobacco use date assessed 01/23/23 01/23/23 13:50 Patient Tobacco Use Status Current everyday Tobacco 01/23/23 13:50 Tobacco use type Cigarette 01/23/23 13:50 e-Cigarette/Vaping Use Never Used 01/23/23 13:50 PHQ-9: PHQ-9 Score PHQ-9: Total score 0 01/23/23 13:50 Depression Screening Interpretation: Negative Thrive Assessment: Date of Thrive Assessment Date Thrive assessed 01/23/23 01/23/23 13:50 Currently or been in a relationship where the following occur: no concerns reported Const General: cooperative, healthy appearing and no acute distress Orientation/consciousness: oriented to person, oriented to place and oriented to time HENMT Head: Yes normal to inspection, Yes normocephalic and Yes atraumatic Mouth: Normal oral and palatal mucosa present and tongue normal Throat: Yes posterior oropharynx normal and Yes uvula midline Eyes General: appearance normal, both eyes and all related structures Neck Neck: Yes normal visual inspection, Yes full ROM and Yes no lymphadenopathy Thyroid: Thyroid normal Carotids: normal carotid upstroke Chest Chest palpation & inspection: normal inspection of the chest Resp Effort & Inspection: normal respiratory effort and able to speak in complete sentences Auscultation: clear to auscultation bilaterally Cardio Jugular venous distension: no JVD Palpation: normal PMI Rate: regular rate Rhythm: regular rhythm Heart sounds: S1 normal heart sound present and S2 normal heart sound present GI Inspection: Yes normal to inspection Palpation (GI): Soft to palpation and No hepatosplenomegaly present Auscultation: normal bowel sounds General: Yes no CVA tenderness Back/Spine/Pelvis Back: no CVA tenderness Skin General skin exam: no rashes or lesions noted Neuro General: oriented to person, oriented to place and oriented to time Extrem General: Yes normal to inspection and Yes full ROM Assessment and Plan Assessment & Plan (1) Physical exam: Code(s): Z00.00 - Encounter for general adult medical examination without abnormal findings Plan: do labs Orders: Orders Comprehensive [place]. Panel Fast Today N28.9 - Disorder of kidney and ureter, unspecified Lipid Panel Today E78.5 - Hyperlipidemia, unspecified Thyroid Stimulating Hormone Today E03.9 - Hypothyroidism, unspecified CT soft tissue neck wo IV con Today R22.1 - Localized swelling, mass and lump, neck Complete Blood Count Auto Diff Today D64.9 - Anemia, unspecified Coding Level of Care Code New Pt Prev Care 18-39yr(09114 Diagnoses Physical exam Z00.00 Additional Codes ABDOULAYE-7 Assessment Billing - ABDOULAYE-7 Assessment Tool: ABDOULAYE-7 Assessment 34560 ([id number])
== END 2023-01-23 14:12 | disposition home or self-care (01) ==
PROVIDERS: Visit Provider Internal Medicine
DX: Z00.00 Encounter for general adult medical examination without abnormal findings (principal)
CPT/HCPCS: 99385

== ENCOUNTER 2023-03-02 17:57 | Outpatient (REF) | payer OTHER, SELFPAY ==
--- NOTE | ~2023-03-02 | MR_ITS ---
EXAMINATION: MR KNEE WITHOUT CONTRAST, RIGHT CLINICAL INFORMATION: Right knee effusion. COMPARISON: Radiographs dated 12/26/2022. TECHNIQUE: MRI of the knee without contrast was performed using routine sequences on a high-field scanner. FINDINGS: MENISCI: Medial Meniscus: Intact. Lateral Meniscus: Intact. LIGAMENTS: Cruciate: ACL has a relatively thin, diminutive appearance without laxity or abnormal signal intensity, most consistent with normal variation. PCL is normal. Collateral: Intact. EXTENSOR MECHANISM: Focal edema signal is present in the superolateral aspect of Hoffa's fat pad. Additional mild focal edema signal is evident in the inferolateral aspect of the prefemoral fat pad. Quadriceps and patellar tendons are intact. ARTICULAR CARTILAGE/BONE: Patellofemoral Compartment: Articular cartilage appears well preserved at both the patella and trochlea. Normal trochlear morphology. TT-TG distance measures 1.2 cm, within normal limits. Insall-Salvati ratio measures 1.3. Medial Compartment: Normal. Lateral Compartment: Normal. JOINT FLUID AND BURSAE: No joint effusion or bursitis. MUSCULATURE: Trace edema signal is evident within the lateral head of the gastrocnemius muscle, potentially activity-related. MR/MR knee RT wo con IMPRESSION: 1. Focal edema signal in the superolateral aspect of Hoffa's fat pad and in the inferolateral aspect of the prefemoral fat pad, which can be seen in the setting of patellar tendon-lateral femoral condyle friction syndrome. 2. Normal trochlear morphology and TT-TG distance. 3. Intact menisci and ligaments. 4.Trace edema signal in the lateral head of the gastrocnemius muscle, potentially activity-related.
== END 2023-03-02 17:58 | disposition home or self-care (01) ==
LOC: HO.MRI 17:57
PROVIDERS: Visit Provider Orthopaedic Surgery
DX: M25.461 Effusion, right knee (principal)
CPT/HCPCS: 73721

== ENCOUNTER 2023-03-10 15:42 | Outpatient (REF) | payer OTHER, SELFPAY ==
--- NOTE | ~2023-03-10 | CT_ITS ---
EXAMINATION: CT SOFT TISSUE NECK WITH CONTRAST CLINICAL INFORMATION: Palpable abnormality. Further evaluate. COMPARISON: None available. TECHNIQUE: Following intravenous administration of 60 mL of Omnipaque 350 contrast, helical imaging was performed in the axial plane with generation of coronal and sagittal reformatted images. This CT examination was performed using dose optimization techniques as appropriate, variously including the following: *Automated exposure control *Adjustment of mA and/or kV according to patient size (this includes techniques or standardized protocols for targeted exams where dose is matched to indication/reason for exam; i.e. extremities or head) *Use of iterative reconstruction technique DLP: 335 mGy-cm FINDINGS: At the site of the skin marker, no discrete soft tissue lesion or fluid collection is seen. No adenopathy is evident. No obvious circumscribed fatty mass is visible in the subcutaneous soft tissues at this level. The parotid and submandibular glands are normal in appearance. No contour abnormality or pathologic enhancement is seen within the oral cavity, pharyngeal mucosal space, or larynx. The thyroid gland is normal. The airway is normally maintained. No cervical adenopathy identified. The carotid sheath vasculature opacifies normally. The imaged mediastinum is normal. The visualized portions of the lungs are clear. The osseous structures are normal. No periapical lucencies are seen in the dentition. The patient has had prior maxillary root canals. The TMJs are normal. The mastoid air cells are clear. The paranasal sinuses are well aerated. The orbits are normal. The imaged portions of the brain demonstrate no acute abnormality. CT/CT soft tissue neck w IV con IMPRESSION: Normal CT scan of the neck. No discrete lesion visible at the site of the reported palpable abnormality and skin BB marker.
[2023-03-10] MEDS: iohexoL 350 MG/ML 100 ML INFUS..BTL IV (16:21)
== END 2023-03-10 15:43 | disposition home or self-care (01) ==
LOC: HO.CT 15:42
PROVIDERS: Visit Provider Internal Medicine
DX: R22.1 Localized swelling, mass and lump, neck (principal)
CPT/HCPCS: 70491; Q9967

== ENCOUNTER 2023-03-23 10:47 | Outpatient (AMB) | payer OTHER, SELFPAY ==
--- NOTE | 2023-03-23 11:04 | MHC.OFFVIS ---
Intake Intake Visit Reasons: OV- MRI Review Right Knee pain Intake Note: Barbara is a 27 year old female who presents today for an MRI review of her right knee. MRI done @ [facility] [place] . Allergies No Known Allergies Allergy (Verified 03/23/23 11:06) Medication List - Last Reconciled 03/23/23 by Frannie Mackenzie RN No Known Home Meds HPI OV- MRI Review Right Knee pain HPI Details Barbara is a 27 year old woman who presents for an MRI review of her right knee pain & swelling. She continues to complain of pain with daily activity, worse with exercise activities. She says this has not improved with PT or NSAIDs. She tries to stay active at the gym, but activities such as a stationary bicycle or leg press cause her knee pain. She has a hx of a left knee ACL repair on 03/05/22. She denies any left knee pain. REPLACED BY [facility] Medical History Knee effusion, right Genital herpes Surgical History [place] teeth removed Social History Housing: House Alcohol intake: current Alcohol intake frequency: a few times a month Patient Tobacco Use Status: Current everyday Tobacco user Tobacco use type: Cigarette Cigarettes Per Day: 4 e-Cigarette/Vaping Use: Never Used Second Hand Smoke Exposure: No service: No Current occupational status: employed Current occupation: [employer], rt handed Cognitive needs: No Hearing needs: No Vision needs: No Review of Systems Const All systems reviewed & are unremarkable except as noted in HPI and below Physical Exam Const General: no acute distress, alert and awake Orientation/consciousness: patient oriented x3 HEENT Head: Yes normocephalic and Yes atraumatic Eyes EOM: EOMs intact bilaterally Resp Effort & Inspection: normal respiratory effort and able to speak in complete sentences Cardio Jugular venous distension: no JVD Skin General skin exam: turgor normal Rashes: no rashes Neuro General: patient oriented x3 Extrem Other: Right Knee: mild lateral retropatellar ttp otherwsie nl exam Left Knee: Stable arabella's No effusion Full painless ROM Psych Appearance: grossly normal Affect: normal affect Attitude: cooperative Results Reviewed Results Reviewed: I personally reviewed relevant radiographs & MR images No acute fractures or malalignment. Mild joint space narrowing in the medial compartments of both knees. 1. Focal edema signal in the superolateral aspect of Hoffa's fat pad and in the inferolateral aspect of the prefemoral fat pad, which can be seen in the setting of patellar tendon-lateral femoral condyle friction syndrome. 2. Normal trochlear morphology and TT-TG distance. 3. Intact menisci and ligaments. 4.Trace edema signal in the lateral head of the gastrocnemius muscle, potentially activity-related. Addendum: Of note, there is a 1.8 x 0.7 x 0.6 cm low signal intensity focus within the distal recess of an otherwise empty Pineda's cyst, most consistent with a chondral loose body. A clear site of origin of this loose body is not identified at the articular surfaces appear relatively well-preserved. No additional loose bodies are identified. Assessment & Plan Assessment & Plan (1) Patellofemoral pain syndrome of right knee: Code(s): M22.2X1 - Patellofemoral disorders, right knee Plan: This is a 27 year old woman with right PF pain syndrome. She has pain with daily activity, worse with kneeling or squatting activities. She denies any prior treatment and feels limited in her ability to remain active at the gym. I discussed her diagnosis and treatment options. No acute intervention warranted. I recommend she continue activity as tolerated, limit or avoid any deep squatting activities. She can follow up prn. Plan Scribed for Paras Pineda MD by Rolly Hinkle, district medical examiner, on 03/23/23 at 11:30 AM, EST. Coding Level of Care Code Est Pt Level 3 (39900) Diagnoses Patellofemoral pain syndrome of right knee M22.2X1
== END 2023-03-23 11:32 | disposition home or self-care (01) ==
PROVIDERS: Visit Provider Orthopaedic Surgery
DX: M22.2X1 Patellofemoral disorders, right knee (principal)
CPT/HCPCS: 99213

== ENCOUNTER → 2023-03-23 10:47 | Outpatient (BNVA) | payer OTHER, SELFPAY | PROVIDERS: Visit Provider Orthopaedic Surgery ==

== ENCOUNTER 2024-01-27 14:22 | Outpatient (AMB) | payer OTHER, SELFPAY ==
[2024-01-27 14:30] VITALS: BP 114/64; PULSE 75; O2SAT 99; BMI 24.0
--- NOTE | 2024-01-27 14:30 | MHC.PC.OV ---
Vital Signs 01/27/24 14:30 Height 5 ft 6 in Weight 149 lb BMI 24.0 BP 114/64 Blood Pressure Location Lt brachial Position Sitting Pulse 75 Pulse Source Pulse Oximeter Pulse Oximetry (%) 99 Oxygen Delivery Method Room Air Intake Visit Reasons: Annual exam Oral Therapist Required: No Accompanied by: Self / Same As Patient Allergies No Known Allergies Allergy (Verified 01/27/24 14:31) Medication List - Last Reconciled 01/28/24 by Yobani Ashraf MD No Known Home Meds Tobacco use date assessed: 01/27/24 Dental Screening Dental Screen Date: 01/27/24 Did you have a dental visit in the last 12 months?: Yes Did you have a dental problem in the last 6 months where you did not have access to dental care?: No Was dental information given to patient?: Patient has dentist HPI Annual exam HPI Details healthy [facility] Medical History Knee effusion, right Genital herpes Surgical History [place] teeth removed Social History Housing: House Alcohol intake: current Alcohol intake frequency: a few times a month Patient Tobacco Use Status: Current everyday Tobacco user Tobacco use type: Cigarette Cigarettes Per Day: 4 e-Cigarette/Vaping Use: Never Used Second Hand Smoke Exposure: No service: No Current occupational status: employed Current occupation: [employer], rt handed Cognitive needs: No Hearing needs: No Vision needs: No Questionnaire PHQ-9 Over the last 2 weeks, how often have you been bothered by any of the following problems? 1. Little interest or pleasure in doing things: not at all 2. Feeling down, depressed, or hopeless: not at all 3. Trouble falling or staying asleep, or sleeping too much: not at all 4. Feeling tired or having little energy: not at all 5. Poor appetite or overeating: not at all 6. Feeling bad about yourself - or that you are a failure or have let yourself or your family down: not at all 7. Trouble concentrating on things, such as reading the newspaper or watching television: not at all 8. Moving or speaking so slowly that other people could have noticed. Or the opposite - being so fidgety or restless that you have been moving around a lot more than usual: not at all 9. Thoughts that you would be better off or of hurting yourself in some way: not at all Total score: 0 Depression Screening Interpretation: Negative Depression Screening Done: Yes 57890 - PHQ-9 Billing: Yes Source: Developed by Drs. Perez Gonzalez, Rose Negro, Neil Bermudez and colleagues, with an educational jenelle from [employer]. Thrive Questionnaire Date Thrive assessed: 01/27/24 I am a: Patient What is your living situation today?: I have a steady place to live Within the past 12 months, did the food you bought not last and you didn't have the money to get more?: Never true Within the past 12 months, did you worry whether your food would run out before you got money to buy more?: Never true Do you have trouble paying for medicines?: No Do you have trouble getting transportation to medical appointments?: No Do you have trouble paying your heating and electricity bill?: No Do you have trouble taking care of your child, family member or friend?: No Do you have trouble with day-to-day activities such as bathing, preparing meals, shopping, managing finances, etc.?: No Are you currently unemployed and looking for a job?: No Are you interested in more education?: No Please select the resources that you would like help with: None THRIVE Score: 0 AUDIT C Alcohol Use Questionnaire (AUDIT-C) 1. How often do you have a drink containing alcohol?: Monthly or less 2. How many drinks containing alcohol do you have on a typical day when you are drinking?: 1 or 2 3. How often do you have six or more drinks on one occasion?: Never Total Score: 1 Score Reviewed/Action Taken: Yes ABDOULAYE-7 AMB Questionnaire ABDOULAYE-7 Date ABDOULAYE - 7 assessed: 01/27/24 Feeling nervous, anxious, or on edge: 0 = Not at all Not being able to stop or control worryin = Not at all Worrying too much about different things: 0 = Not at all Trouble relaxin = Not at all Being so restless that it is hard to sit still: 0 = Not at all Becoming easily annoyed or irritable: 0 = Not at all Feeling afraid as if something awful might happen: 0 = Not at all Total ABDOULAYE-7 score (0-4 normal; 5-9 mild; 10-14 moderate; 15-21 severe): 0 Source: Developed by Drs. Perez Gonzalez, Rose Negro, Neil Bermudez and colleagues, with an educational jenelle from [employer]. ABDOULAYE-7 Assessment Billing ABDOULAYE-7 Assessment Tool: ABDOULAYE-7 Assessment 37600 Review of Systems Const Denies chills, Denies fatigue, Denies headache(s) and Denies weight loss Eyes Denies change in vision, Denies diplopia and Denies eye pain ENT Denies vertigo, Denies dizziness, Denies headache(s) and Denies nasal discharge Card Denies chest pain, Denies rapid heart rate and Denies dyspnea on exertion Resp Denies chest congestion, Denies cough, Denies pain with cough and Denies dyspnea on exertion GI Denies abdominal pain, Denies hematochezia and Denies change in bowel habits Musc Denies myalgias, Denies arthralgias and Denies joint swelling Skin/Breast Denies lesions and Denies unusual bruising Neuro Denies vertigo, Denies dizziness, Denies headache(s) and Denies focal weakness Endo Denies fatigue Physical exam (Primary Care) Vital Signs: Last Vital Signs Pulse 75 01/27/24 14:30 BP 114/64 01/27/24 14:30 Pulse Ox 99 01/27/24 14:30 Oxygen Delivery Method Room Air 01/27/24 14:30 BMI result Body Mass Index 24.0 Tobacco/Smoking Status: Tobacco use Status Tobacco use date assessed 01/27/24 01/27/24 14:36 Patient Tobacco Use Status Current everyday Tobacco 01/27/24 14:36 Tobacco use type Cigarette 01/27/24 14:36 e-Cigarette/Vaping Use Never Used 01/27/24 14:36 PHQ-9: PHQ-9 Score PHQ-9: Total score 0 01/27/24 14:36 Depression Screening Interpretation: Negative Thrive Assessment: Date of Thrive Assessment Date Thrive assessed 01/27/24 01/27/24 14:36 Const General: cooperative, healthy appearing and no acute distress Orientation/consciousness: oriented to person, oriented to place and oriented to time HENMT Head: Yes normal to inspection, Yes normocephalic and Yes atraumatic Mouth: Normal oral and palatal mucosa present and tongue normal Throat: Yes posterior oropharynx normal and Yes uvula midline Eyes General: appearance normal, both eyes and all related structures Neck Neck: Yes normal visual inspection, Yes full ROM and Yes no lymphadenopathy Thyroid: Thyroid normal Carotids: normal carotid upstroke Chest Chest palpation & inspection: normal inspection of the chest Resp Effort & Inspection: normal respiratory effort and able to speak in complete sentences Auscultation: clear to auscultation bilaterally Cardio Jugular venous distension: no JVD Palpation: normal PMI Rate: regular rate Rhythm: regular rhythm Heart sounds: S1 normal heart sound present and S2 normal heart sound present GI Inspection: Yes normal to inspection Palpation (GI): Soft to palpation and No hepatosplenomegaly present Auscultation: normal bowel sounds General: Yes no CVA tenderness Back/Spine/Pelvis Back: no CVA tenderness Skin General skin exam: no rashes or lesions noted Neuro General: oriented to person, oriented to place and oriented to time Extrem General: Yes normal to inspection and Yes full ROM Assessment and Plan Assessment & Plan (1) Physical exam: Code(s): Z00.00 - Encounter for general adult medical examination without abnormal findings Plan: stable; do labs Orders: Orders Comprehensive Dixon. Panel Fast Today Z13.9 - Encounter for screening, unspecified Lipid Panel Today Z13.220 - Encounter for screening for lipoid disorders Complete Blood Count Auto Diff Today Z13.0 - Encounter for screening for diseases of the blood and blood-forming organs and certain disorders involving the immune mechanism Thyroid Stimulating Hormone Today Z13.29 - Encounter for screening for other suspected endocrine disorder Coding Level of Care Code Est Pt Prev Care 18-39y(61365) Diagnoses Physical exam Z00.00 Additional Codes ABDOULAYE-7 Assessment Billing - ABDOULAYE-7 Assessment Tool: ABDOULAYE-7 Assessment 65116 ([id number])
== END 2024-01-27 14:45 | disposition home or self-care (01) ==
PROVIDERS: Visit Provider Internal Medicine
DX: Z00.00 Encounter for general adult medical examination without abnormal findings (principal)
CPT/HCPCS: 99395

== ENCOUNTER 2024-10-13 10:33 | Outpatient (AMB) | payer OTHER, SELFPAY ==
--- NOTE | 2024-10-13 11:26 | AM.OFFWIN_ITS ---
Intake Vital Signs 3 10/13/24 11:28 Height 5 ft 6 in Weight 144 lb BMI 23.2 BP 120/86 Blood Pressure Location Rt brachial Position Sitting Pulse 69 Pulse Source Pulse Oximeter Pulse Oximetry (%) 100 Oxygen Delivery Method Room Air Intake Visit Reasons: EP pain on back & front of both legs Intake Note: * Patient here for bruising on back of both legs that started a couple of days ago. Patient Tobacco Use Status: Current everyday Tobacco user Allergies No Known Allergies Allergy (Verified 10/13/24 11:35) Medication List - [facility] No Known Home Meds Do you need a note to return to daycare/school/sports/work: Yes HPI HPI Comments 2 History of Present Illness0 Details - The patient is a 29-year-old female pr esenting with spontaneous bruising and leg pain. - Bruising initially observed on the nadres k of both legs three days prior, progressing with pain felt on the front of the legs. - No recent trauma; travel to the [employer] shortly before symptom onset 5 days ago; engaged in water slides and hot tub use prior to onset - Yesterday experienced leg shaking in h er quads, R>L after running in softball game. Subsequently felt faint and nauseated, vomiting once. - No current medications except post-fac t ibuprofen - No chest pain or familial trends in bl ood clotting or autoimmune difficulties. -Denies heating pad use. Denies fever, chills, sob. Exam: Neurovasc intact BLE Some increased tone of R quad muscle, normal strength tone and reflexes. Antaglic gait favoring R leg. Results - Ultrasound of both legs ordered to ass ess for possible blood clots. Results pending Discussion Notes In our discussion, I informed the patient of the need to rule out potential blood clots in the legs as a life-threatening condition despite her low risk profile. I explained the importance of an ultrasound for definitive assessment, detailing the need for immediate evaluation to prevent any severe complications. I discussed the potential treatment with steroids if thromboembolism is not identified, emphasizing the necessity of follow-up with primary care for an ongoing assessment of the skin and tissue condition. Additionally, I advised her to continue monitoring for any new symptoms or changes. I clarified that results from the ultrasound should be anticipated and any further management would be guided by this information. Finally, I directed her to arrange a prompt follow- up with her primary care provider post this evaluation. Assessment and Plan 1. Bruising and leg pain An ultrasound of both legs is necessary to exclude the possibility of blood clots. In case of clot confirmation, anticoagulation procedures are to be initiated per standard protocol. Should there be no clots, corticosteroids will be considered for symptomatic relief. Patient Instructions - [facility]. - Follow up with your primary care justini radha to discuss the results and next steps. - Monitor for any new symptoms or worsen ing of the current condition. - Seek prompt care if any new symptoms d evelop, especially leg swelling, unexplained pain, or difficulty breathing. Consent Patient was informed and verbally consented to the use of an ambient scribe for clinic note documentation during this visit. Total time spent caring for the patient today was 40 minutes. This includes time spent before the visit reviewing the chart, time spent during the visit, and time spent after the visit on documentation, reviewing laboratory results, diagnostic imaging, medications, performing a medically necessary evaluation, counseling on diagnoses, care coordination, ordering appropriate tests, ordering appropriate medications, review of tests performed by other providers, reporting test results with the patient, communication with other healthcare providers. [facility] Medical History Knee effusion, right Genital herpes Surgical History [place] teeth removed Social History Housing: House Alcohol intake: current Alcohol intake frequency: a few times a month Patient Tobacco Use Status: Current everyday Tobacco user Tobacco use type: Cigarette Cigarettes Per Day: 4 e-Cigarette/Vaping Use: Never Used Second Hand Smoke Exposure: No service: No Current occupational status: employed Current occupation: [employer], rt handed Cognitive needs: No Hearing needs: No Vision needs: No Physical Exam Vital Signs: Last Vital Signs Pulse 69 10/13/24 11:28 BP 120/86 10/13/24 11:28 Pulse Ox 100 10/13/24 11:28 Oxygen Delivery Method Room Air 10/13/24 11:28 BMI result Body Mass Index 23.2 Assessment & Plan Assessment & Plan (1) Ecchymoses, spontaneous: Code(s): R23.3 - Spontaneous ecchymoses (2) Leg swelling: Code(s): M79.89 - Other specified soft tissue disorders Plan . Orders: Orders 2 US venous duplex LE BI Today M79.89 - Other specified soft tissue disorders, R23.3 - Spontaneous ecchymoses Patient Instructions: . Coding Level of Care Code Est Pt Level 5 (77635) Diagnoses Ecchymoses, spontaneous R23.3 Leg swelling M79.89
[2024-10-13 11:28] VITALS: BP 120/86; PULSE 69; O2SAT 100; BMI 23.2
--- OUTSIDE RECORDS SUMMARY | 2024-10-13 11:55 | XMS_ITS | Clinical Summary ---
Author Organization [facility] Address [address] [place] [address] Care Team Providers Care Bridges Supervisor Name Role Phone Unavailable Primary Care Provider Unavailabl e Social History Tobacco Use Types Packs/Day Years Used Date Smoking Tobacco: Never Assessed Comments Unknown Sex and Gender Information Value Date Recorded Sex Assigned at Not on file Legal Sex Female 8:33 PM EST Gender Identity Not on file Sexual Orientation Not on file Plan of Treatment Health Maintenance Due Date Last Done Comments DTaP,Tdap,and Td Vaccines (1 - Tdap) 2016 Hepatitis B Vaccines (1 of 3 - 19+ 3-dose series) 2016 Cervical Cancer Screening: P ap Smear 2018 COVID-19 Vaccine ( - 2023-2 5 season) 2024 Influenza Vaccine (Season Ended) 2025 HIB Vaccines Aged Out No longer eligi ble based on patient's age to complete this topic HPV Vaccines Aged Out No longer eligi ble based on patient's age to complete this topic Hepatitis A Vaccines Aged Out No long er eligible based on patient's age to complete this topic IPV Vaccines Aged Out No longer eligi ble based on patient's age to complete this topic MMR Vaccines Aged Out No longer eligi ble based on patient's age to complete this topic Meningococcal ACWY Vaccine Aged Out N o longer eligible based on patient's age to complete this topic Meningococcal B Vaccine Aged Out No l onger eligible based on patient's age to complete this topic Pneumococcal Vaccine: Pediat rics (0 to 5 Years) and At-Risk Patients (6 to 64 Years) Aged Out No longer eligible b ased on patient's age to complete this topic RSV Immunization Patients Un radha 20 months Aged Out No longer eligible b ased on patient's age to complete this topic Varicella Vaccines Aged Out No longer eligible based on patient's age to complete this topic
== END 2024-10-13 12:30 | disposition home or self-care (01) ==
PROVIDERS: PCP Internal Medicine; Visit Provider Nurse Practitioner Family
DX: R23.3 Spontaneous ecchymoses (principal); M79.89 Other specified soft tissue disorders

== ENCOUNTER → 2024-10-13 10:33 | Outpatient (BNVA) | payer OTHER, SELFPAY | PROVIDERS: PCP Internal Medicine; Visit Provider Nurse Practitioner Family | DX: Z13.89 Encounter for screening for other disorder (principal) ==

== ENCOUNTER 2024-10-13 12:51 | Outpatient (REF) | payer OTHER, SELFPAY ==
--- NOTE | ~2024-10-13 | US_ITS ---
EXAMINATION: US TRIPLEX LOWER EXTREMITY, BILATERAL CLINICAL INFORMATION: Bilateral lower extremity bruising and swelling, right greater than left. Concern for DVT. COMPARISON: None available. TECHNIQUE: Color-flow triplex imaging with spectral analysis and compression Doppler were performed on the bilateral lower extremities. FINDINGS: Respiratory variation, normal compression and augmented flow are noted throughout the bilateral lower extremities. The visualized common femoral vein, superficial femoral vein, profunda femoral vein, popliteal vein and midcalf peroneal and posterior tibial venous segments show no evidence of deep venous thrombosis bilaterally. There is no Pineda's cyst. Mildly prominent left groin lymph nodes noted, reactive appearance. US/US venous duplex LE BI IMPRESSION: No evidence of deep venous thrombosis involving the bilateral lower extremities. Electronically signed by: Tom Roman MD 10/13/2024 02:18 PM EDT
--- OUTSIDE RECORDS SUMMARY | 2024-10-13 13:56 | XMS_ITS | Clinical Summary ---
Author Organization [facility] Address [address] [place] [address] Care Team Providers Care Car And Yard Supervisor Name Role Phone Unavailable Primary Care [...]
== END 2024-10-13 12:52 | disposition home or self-care (01) ==
LOC: HO.US 12:51
PROVIDERS: Visit Provider Nurse Practitioner Family
DX: R23.3 Spontaneous ecchymoses (principal); M79.89 Other specified soft tissue disorders
CPT/HCPCS: 93970

== ENCOUNTER → 2024-10-13 12:56 | Outpatient (BNV) | payer OTHER, SELFPAY | PROVIDERS: Visit Provider Radiology Diagnostic Radiology | DX: R22.43 Localized swelling, mass and lump, lower limb, bilateral (principal); R23.3 Spontaneous ecchymoses | CPT/HCPCS: 93970 ==

== ENCOUNTER 2024-11-14 15:59 | Outpatient (AMB) | payer OTHER, SELFPAY ==
--- NOTE | 2024-11-14 16:05 | MHC.PC.OV ---
Vital Signs 11/14/24 16:06 Height 5 ft 6 in Weight 150 lb 4 oz BMI 24.2 BP 110/72 Blood Pressure Location Lt brachial Position Sitting Pulse 94 Pulse Source Pulse Oximeter Temp 97.5 F Temp Source Temporal Artery Scan Pulse Oximetry (%) 98 Oxygen Delivery Method Room Air Intake Visit Reasons: discharged follow up Intake Note: Patient is here to follow-up after a visit the emergency department at [facility] Walk-in on 10/13/24 Asset Protection Professional Required: No Captain Of Guards: Not Required per policy Accompanied by: Self / Same As Patient Allergies No Known Allergies Allergy (Verified 11/14/24 16:15) Medication List - Last Reconciled 11/14/24 by Tori Arnold PA-C No Known Home Meds Tobacco use date assessed: 11/14/24 Dental Screening Dental Screen Date: 11/14/24 Did you have a dental visit in the last 12 months?: Yes Did you have a dental problem in the last 6 months where you did not have access to dental care?: No Was dental information given to patient?: Patient has dentist HPI discharged follow up HPI Details 29-year-old female with past medical history of leg swelling last seen by Dr. Ashraf 01/2024 coming in for walk-in follow up.? In review of the notes, patient was seen in walk-in clinic 10/13/2024 for bilateral leg swelling and ecchymosis.?Venous duplex was ordered which showed no evidence of DVT and otherwise normal. Presenting with bilateral thigh pain and muscle cramps. The symptoms began during a softball game when her thighs started to shake for around five hours. This episode was followed by an inability to walk, alongside swelling and bruising which resolved later. The pain is recurrent during and after activities such as playing softball, where changing footwear provided slight relief. The cramps persist until sleep and resolve by morning. The patient denies any warmth or redness in the area presently but reports a history of patellofemoral syndrome. [facility] Medical History Knee effusion, right Genital herpes Surgical History History of repair of ACL [place] teeth removed Social History Housing: House Alcohol intake: current Alcohol intake frequency: a few times a month Patient Tobacco Use Status: Current everyday Tobacco user Tobacco use type: Cigarette Cigarette Packs Per Day: 0.5 Cigarettes Per Day: 10 e-Cigarette/Vaping Use: Never Used Second Hand Smoke Exposure: Yes service: No Current occupational status: employed Current occupation: [employer], [employer] Cognitive needs: No Hearing needs: No Vision needs: No Questionnaire PHQ-9 Over the last 2 weeks, how often have you been bothered by any of the following problems? 1. Little interest or pleasure in doing things: not at all 2. Feeling down, depressed, or hopeless: not at all 3. Trouble falling or staying asleep, or sleeping too much: not at all 4. Feeling tired or having little energy: not at all 5. Poor appetite or overeating: not at all 6. Feeling bad about yourself - or that you are a failure or have let yourself or your family down: not at all 7. Trouble concentrating on things, such as reading the newspaper or watching television: not at all 8. Moving or speaking so slowly that other people could have noticed. Or the opposite - being so fidgety or restless that you have been moving around a lot more than usual: not at all 9. Thoughts that you would be better off or of hurting yourself in some way: not at all Total score: 0 Depression Screening Interpretation: Negative Depression Screening Done: Yes Source: Developed by Drs. Perez Gonzalez, Rose Negro, Neil Bermudez and colleagues, with an educational jenelle from [employer]. Thrive Questionnaire Date Thrive assessed: 11/14/24 I am a: Patient What is your living situation today?: I have a steady place to live Within the past 12 months, did the food you bought not last and you didn't have the money to get more?: Never true Within the past 12 months, did you worry whether your food would run out before you got money to buy more?: Never true Do you have trouble paying for medicines?: No Do you have trouble getting transportation to medical appointments?: No Do you have trouble paying your heating and electricity bill?: No Do you have trouble taking care of your child, family member or friend?: No Do you have trouble with day-to-day activities such as bathing, preparing meals, shopping, managing finances, etc.?: No Are you currently unemployed and looking for a job?: No Are you interested in more education?: No Please select the resources that you would like help with: None Currently or been in a relationship where the following occur: No concerns reported THRIVE Score: 0 AUDIT C Alcohol Use Questionnaire (AUDIT-C) 1. How often do you have a drink containing alcohol?: Monthly or less 2. How many drinks containing alcohol do you have on a typical day when you are drinking?: 1 or 2 Total Score: 1 ABDOULAYE-7 AMB Questionnaire ABDOUALYE-7 Date ABDOULAYE - 7 assessed: 11/14/24 Feeling nervous, anxious, or on edge: 0 = Not at all Not being able to stop or control worryin = Not at all Worrying too much about different things: 0 = Not at all Trouble relaxin = Not at all Being so restless that it is hard to sit still: 0 = Not at all Becoming easily annoyed or irritable: 0 = Not at all Feeling afraid as if something awful might happen: 0 = Not at all Total ABDOULAYE-7 score (0-4 normal; 5-9 mild; 10-14 moderate; 15-21 severe): 0 Source: Developed by Drs. Perez Gonzalez, Rose Negro, Neil Bermudez and colleagues, with an educational jenelle from [employer]. Review of Systems Const Denies body aches, Denies chills, Denies fever(s), Denies headache(s) and Denies poor appetite Eyes Reports no additional complaints ENT Denies dizziness and Denies headache(s) Card Denies chest pain, Denies lightheadedness and Denies dyspnea Resp Denies dyspnea GI Denies nausea and Denies vomiting Reports no additional complaints Musc Reports no additional complaints and Denies abnormal gait Skin/Breast Reports system reviewed and no additional complaints, except as documented Neuro Denies abnormal gait, Denies dizziness and Denies headache(s) Psych Reports no additional complaints Physical exam (Primary Care) Vital Signs: Last Vital Signs Temp 97.5 F 11/14/24 16:06 Pulse 94 11/14/24 16:06 BP 110/72 11/14/24 16:06 Pulse Ox 98 11/14/24 16:06 Oxygen Delivery Method Room Air 11/14/24 16:06 BMI result Body Mass Index 24.2 Tobacco/Smoking Status: Tobacco use Status Tobacco use date assessed 11/14/24 11/14/24 16:09 Patient Tobacco Use Status Current everyday Tobacco 11/14/24 16:12 Tobacco use type Cigarette 11/14/24 16:12 e-Cigarette/Vaping Use Never Used 11/14/24 16:12 PHQ-9: PHQ-9 Score PHQ-9: Total score 0 11/14/24 16:15 Depression Screening Interpretation: Negative Thrive Assessment: Date of Thrive Assessment Date Thrive assessed 11/14/24 11/14/24 16:09 Currently or been in a relationship where the following occur: No concerns reported Const General: cooperative, healthy appearing, comfortable and no acute distress Orientation/consciousness: patient oriented x3 HENMT Head: Yes normocephalic Ears: hearing grossly normal bilaterally General nose exam: Normal external nose present Eyes General: appearance normal, both eyes and all related structures Conjunctivae: conjunctivae normal Neck Neck: Yes full ROM and Yes no lymphadenopathy Resp Effort & Inspection: normal respiratory effort Auscultation: clear to auscultation bilaterally, no crackles, no rales, no rhonchi and no wheezes Cardio Rate: regular rate Rhythm: regular rhythm Skin General skin exam: no rashes or lesions noted Neuro General: patient oriented x3 Gait exam (Neuro): Normal gait present Extrem Other: Very mild tenderness to palpation of bilateral quad muscles. No swelling, ecchymosis, redness, warmth of bilateral lower extremities. Intact strength and sensation in bilateral lower extremity General: Yes normal to inspection, Yes full ROM and No edema Psych Affect: normal affect Attitude: cooperative Insight: Good insight present (Psych) Judgement: Good judgement present (Psych) Coding Level of Care Code Est Pt Level 3 (04524) Diagnoses Leg cramping R25.2 Leg swelling M79.89 Ecchymoses, spontaneous R23.3 Assessment & Plan Assessment & Plan (1) Leg cramping: Code(s): R25.2 - Cramp and spasm Category: Medical Plan: During the appointment, I addressed the bilateral thigh cramps which likely stem from hydration or electrolyte issues or may be due to conditioning gaps. I ordered blood work to evaluate electrolytes. Proper hydration with beverages containing electrolytes was advised. Physical therapy was recommended to strengthen muscles around the knees and thighs. Though the patient has a history of patellofemoral syndrome and major knee injuries, the main challenge is muscular. Early arthritic changes were identified previously. Follow-up visits will assess treatment success and involve orthopedic consultation if needed. (2) Leg swelling: Code(s): M79.89 - Other specified soft tissue disorders Category: Medical Plan: Leg swelling has resolved at this time in bilateral legs appear normal without swelling, redness, warmth and no tenderness to palpation. (3) Ecchymoses, spontaneous: Code(s): R23.3 - Spontaneous ecchymoses Category: Medical Plan: Ecchymosis has resolved and not recurred. Plan This note was constructed using voice recognition software. While every effort has been made to ensure accuracy and cardiac nurse, still areas may have been included sometimes these areas may affect the content or meeting of the given symptoms. Total time spent caring for the patient today was 20 minutes. This includes time spent before the visit reviewing the chart, time spent during the visit, and time spent after the visit and documentation. Patient was informed and verbally consented to the use of an ambient scribe for clinic note documentation during this visit. Orders: Orders Magnesium 11/14/24 R25.2 - Cramp and spasm Comprehensive Met. Panel 11/14/24 R25.2 - Cramp and spasm, Z00.00 - Encounter for general adult medical examination without abnormal findings Vitamin B12 and Folate 11/14/24 R25.2 - Cramp and spasm, Z13.21 - Encounter for screening for nutritional disorder Vitamin D 25-OH Total 11/14/24 R25.2 - Cramp and spasm, Z00.00 - Encounter for general adult medical examination without abnormal findings PT Evaluation and Treatment 11/14/24 M79.89 - Other specified soft tissue disorders, R25.2 - Cramp and spasm Complete Blood Count Auto Diff 11/14/24 R25.2 - Cramp and spasm, Z00.00 - Encounter for general adult medical examination without abnormal findings TSH reflex Free T4 11/14/24 R25.2 - Cramp and spasm, Z00.00 - Encounter for general adult medical examination without abnormal findings
[2024-11-14 16:06] VITALS: BP 110/72; PULSE 94; TEMP 36.4; O2SAT 98; BMI 24.2
--- OUTSIDE RECORDS SUMMARY | 2024-11-14 17:33 | XMS_ITS | Clinical Summary ---
Author Organization [facility] it Address [address] [place] [address] Care Team Providers Care Inspector Repairer Sandstone Name Role Phone Unavailable Primary Care Provider [...]
== END 2024-11-14 16:34 | disposition home or self-care (01) ==
PROVIDERS: PCP Internal Medicine
DX: R25.2 Cramp and spasm (principal); M79.89 Other specified soft tissue disorders; R23.3 Spontaneous ecchymoses

== ENCOUNTER → 2024-11-14 15:59 | Outpatient (BNVA) | payer OTHER, SELFPAY | PROVIDERS: PCP Internal Medicine | DX: Z13.89 Encounter for screening for other disorder (principal) ==

== ENCOUNTER 2024-12-05 10:33 | Outpatient (REF) | payer OTHER, SELFPAY ==
--- OUTSIDE RECORDS SUMMARY | 2024-12-05 12:46 | XMS_ITS | Clinical Summary ---
Author Organization [facility] it Address [address] [place] [address] Care Team Providers Care Global Mobility Specialist Name Role Phone Unavailable Primary Care Provider [...]
[2024-12-05 13:22] LABS: MANUAL DIFF FLAG NO
[2024-12-05 13:30] LABS: Basophils Percent Auto 0.3 % (0-2); Eosinophils Absolute Auto 0.4 X10*3/uL (0.0-0.4); Eosinophils Percent Auto 4.3 % (0-4); Imm Gran Abs Auto 0.05 X10*3/uL (0.00-0.03); Imm Gran Pct Auto 0.5 % (0.0-0.4); Lymphocytes Absolute Auto 3.1 X10*3/uL (1.2-4.9); Lymphocytes Percent Auto 31.2 % (20-40); Mean Corpuscular HGB Conc 33.3 g/dl (31.0-35.0); Mean Corpuscular Hemoglobin 30.7 pg (27.0-33.0); Mean Corpuscular Volume 92.1 fL (80.0-98.0); Monocytes Absolute Auto 0.8 X10*3/uL (0.1-1.2); Monocytes Percent Auto 8.1 % (2-11); Neutrophils Absolute Auto 5.5 x10*3/uL (2.0-8.3); Neutrophils Percent Auto 55.6 % (45-73); Platelet Count 319 X10*3/uL (160-400); Red Blood Count 4.56 X10*6/uL (4.20-5.50)
[2024-12-05 14:03] LABS: Alanine Aminotransferase 13 U/L (0-31); Albumin Level 4.6 g/dL (3.5-5.0); Alkaline Phosphatase 70 U/L (39-117); Anion Gap 12 (12-20); Aspartate Amino Transferase 16 U/L (5-31); Bilirubin Total 1.2 mg/dL (0.0-1.0); Blood Urea Nitrogen 12 mg/dL (9-16); Calcium 9.2 mg/dL (8.4-10.2); Carbon Dioxide 25 mmol/L (22-29); Chloride 106 mmol/L (96-108); Estimated Glomerular Filt Rate > 60; Glucose Random 83 mg/dL (60-115); Potassium 4.5 mmol/L (3.3-5.1); Sodium 138 mmol/L (135-145); Total Protein 7.2 g/dL (6.5-8.0)
[2024-12-05 14:32] LABS: TSH reflex Free T4 0.37 uIU/mL (0.32-4.0); Vitamin D 25-OH Total 20.5 ng/mL (>30)
[2024-12-05 14:43] LABS: Folate 6.3 ng/mL (> or = 4.0); Vitamin B12 329 pg/mL (200-900)
== END 2024-12-05 10:34 | disposition home or self-care (01) ==
LOC: HO.HMGCLDS 10:33
DX: Z00.00 Encounter for general adult medical examination without abnormal findings (principal); Z13.21 Encounter for screening for nutritional disorder; R25.2 Cramp and spasm
CPT/HCPCS: 36415; 80053; 82306; 82607; 82746; 83735; 84443; 85025

== ENCOUNTER 2024-12-05 10:33 | Outpatient (AMB) | payer OTHER, SELFPAY ==
[2024-12-05 11:18] VITALS: BP 100/62; PULSE 58; TEMP 36.6; O2SAT 98; BMI 23.5
--- NOTE | 2024-12-05 11:18 | MHC.OFFWIV ---
Intake Vital Signs 12/05/24 11:18 Height 5 ft 6 in Weight 145 lb 8 oz BMI 23.5 BP 100/62 Blood Pressure Location Lt brachial Position Sitting Pulse 58 Pulse Source Pulse Oximeter Temp 97.9 F Temp Source Oral Pulse Oximetry (%) 98 Oxygen Delivery Method Room Air Intake Visit Reasons: EP swollen gland, rt side neck, sore throat Intake Note: Patient present sore throat times 4 days. States there is a lump on the right side of throat Patient Tobacco Use Status: Current everyday Tobacco user Field Service Consultant Required: No Allergies No Known Allergies Allergy (Verified 12/05/24 11:23) Do you need a note to return to daycare/school/sports/work: Yes HPI HPI Comments History of Present Illness Details History - The patient is a 29-year-old female presenting with a sore throat. - The sore throat began four days ago, accompanied by pain on swallowing and coughing. - She denies fever or chills but experiences occasional nausea at night without vomiting. - Reports of ear fullness, particularly in the left ear, which feels muffled. - Nasal congestion and a stuffy nose are present, with occasional green sputum production when coughing. - She has a large lump in the right side of the throat. - She noticed pus coming from the right tonsil yesterday. - She is a smoker. - She denies fever or chills. She denies sick contacts. - The patient has not tried anything for the pain. Physical Exam General: Cooperative, healthy appearing, comfortable and no acute distress Orientation/consciousness: Patient oriented x3 Head: Normal to inspection Ears: Hearing muffled in one ear, external ears normal, slight redness noted Nose: Normal external nose present, normal nares present, and nose is a little stuffy. Face and sinus: Sinuses slightly inflamed, nontender to palpation. Mouth: Normal oral and palatal mucosa present and moist mucous membranes noted. Throat: Tonsils normal. Uvula is midline. Posterior oropharynx with erythema and no exudates. Large lymph node noted. Eyes: Appearance normal, both eyes and all related structures Neck: Normal visual inspection, full ROM. No lymphadenopathy noted. Respiratory: Clear to auscultation bilaterally. Normal respiratory effort, able to speak in complete sentences. No respiratory distress, not tachypneic, no tripod positioning and no use of accessory muscles. Cardiovascular: Regular rate and rhythm. Normal S1 and S2 Skin: No rashes or lesions noted Patient was informed and verbally consented to the use of an ambient scribe for clinic note documentation during this visit [facility] Medical History Knee effusion, right Genital herpes Surgical History History of repair of ACL [place] teeth removed Social History Housing: House Alcohol intake: current Alcohol intake frequency: a few times a month Patient Tobacco Use Status: Current everyday Tobacco user Tobacco use type: Cigarette Cigarette Packs Per Day: 0.5 Cigarettes Per Day: 10 e-Cigarette/Vaping Use: Never Used Second Hand Smoke Exposure: Yes service: No Current occupational status: employed Current occupation: [employer] Cognitive needs: No Hearing needs: No Vision needs: No Review of Systems Const All systems reviewed & are unremarkable except as noted in HPI and below Physical Exam Vital Signs: Last Vital Signs Temp 97.9 F 12/05/24 11:18 Pulse 58 12/05/24 11:18 BP 100/62 12/05/24 11:18 Pulse Ox 98 12/05/24 11:18 Oxygen Delivery Method Room Air 12/05/24 11:18 BMI result Body Mass Index 23.5 Assessment & Plan Assessment & Plan (1) Sore throat: Code(s): J02.9 - Acute pharyngitis, unspecified Plan Most likely strep vs viral vs peritonsillar abscess Rapid strep in the office was negative Plan - Start antibiotics due to the large cervical lymph node and suspected bacterial infection. - Advise monitoring of symptoms and follow-up if there is no improvement or if symptoms worsen. - VSS, pt well appearing - Salt water gargles - Tylenol and motrin as needed for pain or fever - diet as tolerated - advised smoking cessation - follow up with PCP Medications: New amoxicillin-pot clavulanate 875-125 mg 1 tab PO Q12H 20 tabs 0RF 10 days Coding Level of Care Code Est Pt Level 3 (92053) Diagnoses Sore throat J02.9
--- OUTSIDE RECORDS SUMMARY | 2024-12-05 11:18 | XMS_ITS | Clinical Summary ---
Author Organization [facility] it Address [address] [place] [address] Care Team Providers Care Oil Refinery Process Technician Name Role Phone Unavailable Primary Care Provider [...]
== END 2024-12-05 12:28 | disposition home or self-care (01) ==
PROVIDERS: Visit Provider Physician Assistant Medical
DX: J02.9 Acute pharyngitis, unspecified (principal)

== ENCOUNTER 2025-01-31 13:30 | Outpatient (AMB) | payer OTHER, SELFPAY ==
[2025-01-31 13:33] VITALS: BP 102/56; PULSE 68; RESP 18; TEMP 36.2; O2SAT 97; BMI 24.1
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
--- OUTSIDE RECORDS SUMMARY | 2025-01-31 14:33 | XMS_ITS | Clinical Summary ---
Author Organization [facility] it Address [address] [place] [address] Care Team Providers Care Alarm Security Or Surveillance Monitor Name Role Phone Unavailable Primary Care Provider [...] Screening: P ap Smear 2018 COVID-19 Vaccine (1 - 2023-2 5 season) 2024 Depression Screening 06/08/2024 Influenza Vaccine (#1) 2025 HIB Vaccines Aged Out No longer [...] 5 Years) and At-Risk Patients (6 to 49 Years) Aged Out No longer eligible b ased on patient's age to complete this topic RSV Immunization Patients Un radha 20 months Aged Out No longer eligible b ased on patient's age to complete this topic Varicella Vaccines Aged Out No longer eligible based on patient's age to complete this topic
== END 2025-01-31 14:12 | disposition home or self-care (01) ==
LOC: HO.HMCH 13:31
DX: R10.9 Unspecified abdominal pain (principal); M25.561 Pain in right knee; M25.562 Pain in left knee; Z12.4 Encounter for screening for malignant neoplasm of cervix